=== PATIENT | male | born 1990 | race Caucasian/White ===

== ENCOUNTER 2024-10-17 13:17 | Emergency (ER) | payer BC ==
[2024-10-17] MEDS: Fluorescein 1 MG Ophth Strip EYEBOTH ONE (15:30)
[2024-10-17] MEDS: Proparacaine 0.5% Ophth Soln 15 ML Bottle EYERT ONE (15:30)
== END 2024-10-17 16:07 | disposition home or self-care (01) ==
LOC: JD.ED 13:17
DX: S05.01XA Injury of conjunctiva and corneal abrasion without foreign body, right eye, initial encounter (principal); Z88.1 Allergy status to other antibiotic agents; Z79.899 Other long term (current) drug therapy; X58.XXXA Exposure to other specified factors, initial encounter
CPT/HCPCS: 99283; J3490